=== PATIENT | female | born 1960 | race Two or more races ===

== ENCOUNTER 2017-01-18 11:08 | Day surgery (SDC) | payer BC ==
[~2017-01-18] VITALS: Ht 160 cm; Wt 69.9 kg
[2017-01-18] MEDS ORDERED: LOSA1TAB19 PO (11:52)
[2017-01-18] MEDS ORDERED: AMLO-362 PO (11:52)
[2017-01-18] MEDS ORDERED: ASPI-535 PO (11:52)
[2017-01-18] MEDS ORDERED: [UNRECOGNIZED DRUG - CODE] PO (11:52)
[2017-01-18] MEDS ORDERED: FOLI-49 PO (11:52)
[2017-01-18] MEDS ORDERED: CYAN100080 PO (11:52)
[2017-01-18] MEDS ORDERED: RANI300C7 PO (11:52)
[2017-01-18] MEDS ORDERED: GABA300C16 PO (11:52)
[2017-01-18] MEDS ORDERED: SERT50TA6 PO (11:52)
[2017-01-18] MEDS ORDERED: DICL50TA11 PO (11:52)
[2017-01-18] MEDS ORDERED: DOCU100C26 PO (11:52)
[2017-01-18] MEDS ORDERED: FER325 PO (11:52)
[2017-01-18] MEDS ORDERED: ATOR10TA65 PO (11:52)
[2017-01-18 11:58] VITALS: Ht 160 cm; Wt 69.9 kg
[2017-01-18 12:06] VITALS: BP 211/102; PULSE 86; RESP 19
[2017-01-18] MEDS ORDERED: PROPOFOL 60 ML ONE (12:25)
--- NOTE | 2017-01-18 12:45 | GILP ---
DATE OF PROCEDURE: ADDENDUM On previous job number [id number] in my EGD findings please add: The patient needs to repeat upper endoscopy after 8 weeks. Dictated By: SHELL BLOOM/TAMEKA Conf#: [id number] DID#: [id number]
--- NOTE | 2017-01-18 12:45 | GILP ---
DATE OF PROCEDURE: ADDENDUM On previous job number [id number] in my EGD findings please add: The patient needs to repeat upper endoscopy after 8 weeks. Dictated By: HSELL BLOOM/TAMEKA Conf#: [id number] DID#: [id number]
--- NOTE | 2017-01-18 12:45 | GILP ---
DATE OF PROCEDURE: ADDENDUM On previous job number [id number] in my EGD findings please add: The patient needs to repeat upper endoscopy after 8 weeks. Dictated By: SHELL BLOOM/TAMEKA Conf#: [id number] DID#: [id number]
[2017-01-18 12:55] VITALS: BP 155/89; PULSE 69; RESP 15
--- NOTE | 2017-01-18 15:17 | GILP ---
DATE OF PROCEDURE: PROCEDURES: Esophagogastroduodenoscopy with biopsy and colonoscopy INDICATION: A 56-year-old female undergoing this procedure for anemia, abdominal pain and colon can cer screening. The risks of the procedure, related and unrelated complications, anesthetic risks, a lternatives discussed and informed consent was obtained. DESCRIPTION OF PROCEDURE: The patient was brought to the GI lab, sedated by anesthesiologist. Afte r optimal sedation, scope was passed with much ease into esophagus which was grossly within normal l imits. Z line was at 35 cm. Stomach mucosa revealed gastritis. There was a very defined solution antral ulcer, crater size was 7 to 8 mm duodenum mucosa revealed duodenitis. Second part was within normal limits. Four biopsies obtained from stomach to rule out H. pylori infection. Retroversion was normal. Scope was straightened out and removed with good patient tolerance. IMPRESSION: 1. Normal esophagus. 2. Z line at 35 cm. 3. Antral ulcer. 4. Duodenitis. PLAN: Review histopathology, start the patient on PPI, refrain from NSAIDs or aspirin. COLONOSCOPY REPORT: She was turned around, scope was passed with much ease into the rectum after a digital examination. Digital examination was normal except for a poor sphincter tone. Scope was ad vanced slowly through sigmoid, descending, transverse colon all the way into cecum. Appendiceal chris fice and IC valve identified. Rest of the colon appeared normal. Multiple diverticula seen, mostly on the left side of the colon and also near the hepatic flexure. Clarity and cleanliness was good except for some scattered liquidy stool. Retroversion done, small hemorrhoids identified. Scope wa s straightened out and removed with good patient tolerance. IMPRESSION 1. Small external hemorrhoids. 2. Diverticulosis of moderate degree in the left side of the colon, some of them seen also on the h epatic flexure area. 3. Otherwise normal all the way into the cecum. 4. Clarity and cleanliness was good. PLAN: To stay on high fiber diet. Dictated By: SHELL BLOOM/TAMEKA Conf#: [id number] DID#: [id number]
== END 2017-01-18 14:55 | disposition home or self-care (01) ==
LOC: GIL 11:08
PROVIDERS: ATTEND Internal Medicine Gastroenterology
DX: K29.50 Unspecified chronic gastritis without bleeding (principal); K64.4 Residual hemorrhoidal skin tags; K29.80 Duodenitis without bleeding; K25.9 Gastric ulcer, unspecified as acute or chronic, without hemorrhage or perforation; I10 Essential (primary) hypertension
CPT/HCPCS: 43239; 45378; 88305; 88312; Z7610